=== PATIENT | female | born 1955 | race Caucasian/White ===

== ENCOUNTER → 2017-01-28 | Outpatient (CLI) | payer OTHER ==
--- NOTE | 2017-01-28 11:32 | Diagnostic Imaging Report ---
INDICATION: Cough and left chest pain. PA and lateral views of the chest are obtained with comparison made study of 12/22/2010. FINDINGS: Heart size and pulmonary vascularity are within normal limits, and the lungs are clear, bilaterally. IMPRESSION: Unremarkable chest. Dictated by: Dictated on workstation # [id number]
== END ==
LOC: RAD 11:01
PROVIDERS: ATTEND Family Medicine
DX: R05 Cough (principal)
CPT/HCPCS: 71020

== ENCOUNTER → 2020-01-10 | Outpatient (CLI) | payer OTHER ==
--- NOTE | 2020-01-10 14:36 | Diagnostic Imaging Report ---
INDICATION: Pain status post injury COMPARISON: None. FINDINGS: 3 views of the left knee joint demonstrate no acute fracture or dislocation. No focal osseous lesions are seen. No significant joint effusion is seen. The surrounding soft tissue structures are unremarkable. There are no radiopaque foreign bodies. IMPRESSION: 1. No acute fractures or dislocations of the left knee joint. Dictated by: Dictated on workstation # [id number]
== END ==
LOC: RAD 14:02
PROVIDERS: ATTEND Family Medicine
DX: S80.912A Unspecified superficial injury of left knee, initial encounter (principal); X58.XXXA Exposure to other specified factors, initial encounter
CPT/HCPCS: 73562

== ENCOUNTER 2020-01-26 15:50 | Emergency (ER) | payer BC, OTHER ==
[~2020-01-26] VITALS: Ht 152 cm; Wt 55.0 kg
[2020-01-26] MEDS ORDERED: MELO15TA39 (15:59)
--- NOTE | 2020-01-26 16:43 | ED Lower Extremity ---
General Chief Complaint: Lower Extremity Stated Complaint: L KNEE PAIN Nursing Triage Note: c/o L knee pain after getting into her vehicle earlier today. Patient reports chronic L knee pain. Nursing Sepsis Screen: No Definite Risk History of Present Illness Date Seen by Provider: Jan 26, 2020 Time Seen by Provider: 16:42 Initial Comments This is a well appearing 64 yo female who presented with lower thigh/knee pain in her left lower extremity. States she has been having difficulty with her knee over the past few weeks and received an x-ray here a couple weeks ago. No fractures or dislocations were identified. States she was getting into her car and twisted her leg slightly which cause immediate onset of 8/10, sharp, localized pain in her lower anterior thigh. Pain is improved with extension and worse with jarring or twisting motions. Denies redness, swelling, fever, chills, nausea/vomiting. Allergies and Home Medications Allergies Coded Allergies: No Known Drug Allergies (Unverified , 01/26/20) Patient Home Medication List Home Medication List Reviewed: Yes Review of Systems Constitutional: no symptoms reported EENTM: no symptoms reported Respiratory: no symptoms reported Cardiovascular: no symptoms reported Gastrointestinal: no symptoms reported Genitourinary: no symptoms reported Musculoskeletal: see HPI Skin: no symptoms reported Psychiatric/Neurological: No Symptoms Reported Past Amidbtn-Vjcgli-Vqwqao Hx Patient Social History Alcohol Use: Denies Use Recreational Drug Use: No Smoking Status: Never a Smoker Type Used: Cigarettes 2nd Hand Smoke Exposure: No Recent Foreign Travel: No Contact w/Someone Who Travel: No Recent Infectious Disease Expo: No Past Medical History Surgeries: No Respiratory: No Cardiac: No Neurological: No Genitourinary: No Gastrointestinal: No Musculoskeletal: No Endocrine: No HEENT: No Cancer: No Psychosocial: No Integumentary: No Blood Disorders: No Physical Exam Vital Signs Vital Signs - First Documented 01/26/20 15:56 Temp 37.0 Pulse 74 Resp 20 B/P (MAP) 142/95 (111) Pulse Ox 99 Capillary Refill : Less Than 3 Seconds Height, Weight, BMI Height: '" Weight: lbs. oz. kg; 23.00 BMI Method: General Appearance: WD/WN, no apparent distress HEENT: PERRL/EOMI, normal ENT inspection Neck: full range of motion, supple, normal inspection Cardiovascular: regular rate, rhythm, no murmur Respiratory: chest non-tender, lungs clear, normal breath sounds Gastrointestinal: normal bowel sounds, non tender, soft Hips: bilateral hip non-tender, bilateral hip normal inspection, bilateral hip normal range of motion, bilateral hip no evidence of injury Legs: bilateral leg normal inspection, bilateral leg normal range of motion, bilateral leg no evidence of injury Knees: bilateral knee normal inspection, bilateral knee normal range of motion, bilateral knee no evidence of injury Neurologic/Tendon: normal sensation, normal motor functions Neurologic/Psychiatric: no motor/sensory deficits, alert, normal mood/affect, oriented x 3 Skin: normal color, warm/dry Progress/Results/Core Measures Results/Orders My Orders Orders - PARISH WOODSON APRN Femur, Left, 2 Views (01/26/20 16:40) Vital Signs/I&O 01/26/20 01/26/20 15:56 18:11 Temp 37.0 37.0 Pulse 74 74 Resp 20 20 B/P (MAP) 142/95 (111) 142/95 (111) Pulse Ox 99 99 Blood Pressure Mean: 111 Progress Progress Note : Progress Note Provided with knee immobilizer and instructed to follow up with primary care provider if symptoms persist for further evaluation. Reviewed discharge plan of care and she is agreeable with plan. Diagnostic Imaging Diagonstic Imaging: Xray Plain Films/CT/US/NM/MRI: chest Comments [place] NAME: SUSAN BRENNANWOO [facility]ashawn [facility] REC#: [id number] PT STATUS: REG ER : 1955 PHYSICIAN: PARISH WOODSON APRN ADMIT DATE: 01/26/20/ER Signed Date of Exam:01/26/20 FEMUR, LEFT, 2 VIEWS CLINICAL HISTORY: Left femur pain. No known trauma. COMPARISON: 01/10/2020. TECHNIQUE: Four views of the left femur. FINDINGS: There is no acute fracture or dislocation of the left femur. Alignment is anatomic. The imaged joint spaces are preserved. The surrounding soft tissues are unremarkable. IMPRESSION: No acute fracture or dislocation in the left femur. Dictated by: Dictated on workstation # [id number] Dict: 01/26/20 1738 Trans: 01/26/20 1751 [facility] [id number] Interpreted by: NAEEM MARY DO Electronically signed by: NAEEM MARY DO 01/26/20 1751 Departure Impression Primary Impression: Anterior leg pain Disposition: 01 HOME, SELF-CARE Condition: Improved Departure-Patient Inst. Decision time for Depature: 18:05 Referrals: RENE NIX MD (PCP/Family) Primary Care Physician Patient Instructions: Knee Pain Add. Discharge Instructions: Plan: 1. Discharge home. 2. Use knee brace when ambulating to help support leg. Avoid twisting, turning, and jarring movements of your left leg. 3. Apply ice 20 minutes at a time 4-6x per day as needed for comfort. 4. Follow up with Dr. Nix if symptoms persist. 5. Return for any new, worsening, or concerning symptoms. All discharge instructions reviewed with patient and/or family. Voiced understanding. Copy Copies To 1: RENE NIX MD, STORMY D APRN Jan 26, 2020 16:42
--- NOTE | 2020-01-26 17:43 | Diagnostic Imaging Report ---
CLINICAL HISTORY: Left femur pain. No known trauma. COMPARISON: 01/10/2020. TECHNIQUE: Four views of the left femur. FINDINGS: There is no acute fracture or dislocation of the left femur. Alignment is anatomic. The imaged joint spaces are preserved. The surrounding soft tissues are unremarkable. IMPRESSION: No acute fracture or dislocation in the left femur. Dictated by: Dictated on workstation # [id number]
[2020-01-26 18:11] VITALS: BP 142/95
== END 2020-01-26 18:11 | disposition home or self-care (01) ==
LOC: EDUNIT# 15:50 → ER 15:51
DX: M79.605 Pain in left leg (principal)
CPT/HCPCS: 73552; 99283; L1830

== ENCOUNTER → 2020-01-31 | Outpatient (CLI) | payer BC ==
[~2020-01-31] MED LIST: MELO15TA39
--- NOTE | 2020-01-31 13:15 | Diagnostic Imaging Report ---
EXAMINATION: Magnetic resonance imaging of the left knee without intravenous contrast DATE: January 31, 2020. COMPARISON: Left knee radiographs January 10, 2020. INDICATION: 64-year-old female, twisting injury of the knee. Knee pain. TECHNIQUE: Multiplanar, multisequence non contrast enhanced MR imaging was accomplished. FINDINGS: MENISCI: There is a full thickness radially oriented tear involving the posterior root attachment of the medial meniscus which is well illustrated on axial T2 fat saturation sequence image 16 as well as on sagittal PD sequence image 16 and adjacent sequential images. Currently, there is no medial meniscal extrusion. The lateral meniscus is intact. LIGAMENTS AND TENDONS: The anterior and posterior cruciate ligaments are intact. The medial collateral ligament is intact. The iliotibial band, mid third lateral capsular ligament, fibular collateral ligament, biceps femoris tendon and conjoined tendon are intact. The quadriceps tendon and patella ligament are intact. JOINT: The articular cartilage surfaces are intact. There is no knee joint effusion, prominent synovitis, or intra-articular body. BONE: There is unremarkable bone marrow signal. Specifically, negative for fracture, osteomyelitis, osteonecrosis, or marrow replacing process. BURSAE AND SOFT TISSUES: There is minimal fluid in the popliteal fossa without sizable Aguila's cyst. There is nonspecific posterior subcutaneous edema. There is mild nonspecific prepatellar subcutaneous edema. IMPRESSION: 1. Full-thickness radial oriented tear involving the posterior root attachment of the medial meniscus without current medial meniscal extrusion. 2. Intact lateral meniscus. 3. Intact anterior and posterior cruciate ligaments. Additional ligaments and tendons are intact. 4. No acute fracture, bone contusion, or stress related marrow changes. 5. Intact articular cartilage. No knee joint effusion. Dictated by: Dictated on workstation # [id number]
== END ==
LOC: RAD 11:00
PROVIDERS: ATTEND Family Medicine
DX: S83.242A Other tear of medial meniscus, current injury, left knee, initial encounter (principal); X58.XXXA Exposure to other specified factors, initial encounter
CPT/HCPCS: 73721

== ENCOUNTER → 2021-08-11 | Outpatient (CLI) | payer SELFPAY ==
--- NOTE | 2021-08-11 16:13 | Diagnostic Imaging Report ---
INDICATION: Fall off horse with left hand injury. TIME OF EXAM: 3:57 PM 3 views left hand were obtained. The distal radius and ulna are intact. Carpus is intact. Metacarpals and phalanges are intact. No fractures are seen. There are degenerative changes involving multiple interphalangeal joints. IMPRESSION: Chronic changes. No acute bony abnormality is detected. Dictated by: Dictated on workstation # [id number]
== END ==
LOC: RAD 14:53
PROVIDERS: ATTEND Family Medicine
DX: S69.92XA Unspecified injury of left wrist, hand and finger(s), initial encounter (principal); V80.010A Animal-rider injured by fall from or being thrown from horse in noncollision accident, initial encounter
CPT/HCPCS: 73130